=== PATIENT | female | born 1990 | race African-American/Black ===

== ENCOUNTER 2021-04-09 12:11 | Emergency (ER) | payer OTHER ==
[2021-04-09 12:22] VITALS: BP 124/69; PULSE 85; TEMP 98.1; BMI 28.3
[2021-04-09] MEDS ORDERED: ACETAMINOPHEN 500 MG TABLET (FP) PO ONE (12:43)
[2021-04-09] MEDS ORDERED: ACETAMINOPHEN 500 MG TABLET (FP) ONE (12:50)
[2021-04-09 13:08] LABS: BASO % 0.6 % (0-2.0); EOS % 3.1 % (0-4.5); HEMATOCRIT 38.5 % (32.4-45.2); MCH 29.9 pg (25.7-33.7); MCHC 33.9 g/dl (32.0-36.0); MEAN CELL VOLUME 88.2 fl (80-96); MEAN PLT VOLUME 7.9 fl (7.5-11.1); MONO % 8.2 % (3.8-10.2); NEUT % 59.1 % (42.8-82.8); PLATELET COUNT 254 10^3/uL (134-434); RBC 4.37 M/mm3 (3.60-5.2); RDW 19.6 % (11.6-15.6); WHITE BLOOD COUNT 5.2 K/mm3 (4.0-10.0)
[2021-04-09 13:33] LABS: CALCIUM 9.3 mg/dL (8.5-10.1)
[2021-04-09 13:35] LABS: BLOOD UREA NITROGEN 5.5 mg/dL (7-18)
[2021-04-09 13:37] LABS: CREATININE 0.8 mg/dL (0.55-1.3)
[2021-04-09 14:26] LABS: URINE APPEARANCE CLEAR; URINE BILIRUBIN NEGATIVE (NEGATIVE); URINE COLOR YELLOW; URINE GLUCOSE (UA) NEGATIVE (NEGATIVE); URINE KETONE NEGATIVE (NEGATIVE)
[2021-04-09 14:27] LABS: URINE LEUK ESTERASE NEGATIVE (NEGATIVE); URINE NITRITE NEGATIVE (NEGATIVE); URINE PROTEIN NEGATIVE (NEGATIVE); URINE RBC FEW /uL (0-23.9); URINE UROBILINOGEN 0.2 mg/dL (0.2-1.0)
== END 2021-04-09 16:05 | disposition home or self-care (01) ==
LOC: JER 12:11
DX: O26.851 Spotting complicating pregnancy, first trimester (principal); Z3A.08 8 weeks gestation of pregnancy
CPT/HCPCS: 36415; 76817-TC; 80048; 81003; 84702; 85025; 86850; 86900; 86901; 87086; 87491; 87591; 99284-25